=== PATIENT | female | born 1940 | race Caucasian/White ===

== ENCOUNTER 2017-07-25 12:03 | Inpatient (IN) | payer MEDICARE, OTHER, BC ==
[2017-07-25] MEDS: ASPIRIN 81 MG TAB PO (12:23)
[2017-07-25] MEDS: NA BICARBONATE 8.4% 50 ML SYG IV (12:23)
[2017-07-25] MEDS ORDERED: ATROPINE 0.4 MG INJ IV (12:30)
[2017-07-25 12:42] LABS: ADD MAN DIFF? NO
[2017-07-25] MEDS: ATROPINE 1 MG/10 ML SYRINGE IV (12:45)
[2017-07-25 12:50] LABS: BASOPHILS % 0.5 % (0.0-2.0); EOSINOPHILS # 0.1 10^3/ul (0.0-0.5); HEMATOCRIT 38.9 % (37.0-47.0); HEMOGLOBIN 12.6 g/dl (12.0-16.0); LYMPHOCYTES # 1.3 10^3/ul (0.8-2.9); LYMPHOCYTES % 21.2 % (15.0-51.0); MEAN CORPUSCULAR HEMOGLOBIN 29.2 pg (29.0-33.0); MEAN CORPUSCULAR HGB CONC 32.4 g/dl (32.0-37.0); MEAN CORPUSCULAR VOLUME 90.3 fl (82.0-101.0); MEAN PLATELET VOLUME 11.7 fl (7.4-10.4); MONOCYTE # 0.6 10^3/ul (0.3-0.9); MONOCYTES % 9.9 % (0.0-11.0); NEUTROPHILS % 67.1 % (39.0-77.0); PLATELET COUNT 172 10^3/UL (140-415); RED BLOOD COUNT 4.31 10^6/ul (4.20-5.40); RED CELL DISTRIBUTION WIDTH 14.6 % (11.5-14.5)
[2017-07-25 13:01] LABS: ANION GAP 18 (8-16); BLOOD UREA NITROGEN 47 mg/dl (7-20); CALCIUM 9.1 mg/dl (8.4-10.2); CARBON DIOXIDE 25 mmol/L (21-31); CHLORIDE 106 mmol/L (97-110); CREATININE 1.06 mg/dl (0.44-1.00); GLUCOSE 160 mg/dl (70-220); POTASSIUM 4.3 mmol/L (3.5-5.1); SODIUM 145 mmol/L (135-144)
[2017-07-25 13:08] LABS: INR 1.21; PROTIME 15.5 Sec (11.9-14.9); PT RATIO 1.2
[2017-07-25 13:09] LABS: PARTIAL THROMBOPLASTIN TIME 30.9 Sec (25.0-35.0)
[2017-07-25 13:12] LABS: TROPONIN-I 0.022 ng/ml (0.00-0.12)
[2017-07-25] MEDS ORDERED: ONDANSETRON 4 MG INJ IV (14:00)
[2017-07-25] MEDS ORDERED: ACETAMINOPHEN 325 MG TAB PO (14:00)
[2017-07-25] MEDS ORDERED: NACL 0.9% 3 ML SYG IV (14:30)
[2017-07-25] MEDS ORDERED: GLUCOSE GEL 15 GRAM TUBE BUCCAL (15:00)
[2017-07-25] MEDS ORDERED: GLUCOSE GEL 15 GRAM TUBE PO ×2 (15:00)
[2017-07-25] MEDS ORDERED: DEXTROSE 50% 50 ML SYRINGE IV ×2 (15:00)
[2017-07-25] MEDS ORDERED: GLUCAGON 1 MG INJ IM (15:00)
[2017-07-25] MEDS ORDERED: CEFAZOLIN 2 GM/50 ML (PMX) 50 ML IVPB (15:16)
[2017-07-25] MEDS ORDERED: LIDOCAINE 1%/EPI 30 ML INJ (15:16)
[2017-07-25] MEDS ORDERED: IODIXANOL LOCM 50 ML BTL ×2 (15:17→17:19)
[2017-07-25] MEDS ORDERED: FENTAnyl 50 MCG/ML VIAL (15:30)
[2017-07-25] MEDS ORDERED: MIDAZOLAM 1 MG/ML 2 ML INJ (15:30)
[2017-07-25] MEDS ORDERED: SOD CHLORIDE 0.9% 500 ML (18:34)
[2017-07-25 19:32] LABS: CREATINE KINASE 27 IU/L (23-200)
[2017-07-25 19:45] LABS: CK INDEX 4.5; CK-MB 1.21 ng/ml (0.0-2.4)
[2017-07-25 19:46] LABS: TROPONIN-I 0.179 ng/ml (0.00-0.12)
[2017-07-25] MEDS: INSULIN ASPART [NOVOLOG] 3 ML PEN SC ×2 (19:47→21:00)
[2017-07-25] MEDS: ATORVASTATIN 20 MG TAB PO (21:05)
[2017-07-25] MEDS: CEFAZOLIN 1 GM/50 ML (PMX) 50 ML IVPB (22:06)
[2017-07-26 01:16] LABS: CREATINE KINASE 31 IU/L (23-200)
[2017-07-26 01:28] LABS: CK INDEX 3.7; CK-MB 1.16 ng/ml (0.0-2.4)
[2017-07-26 01:38] LABS: TROPONIN-I 0.221 ng/ml (0.00-0.12)
[2017-07-26] MEDS: GUAIFENESIN/DM 5ML CUP PO (01:41)
[2017-07-26] MEDS: FUROSEMIDE 20 MG INJ IV (01:53)
[2017-07-26] MEDS: ACETAMINOPHEN 325 MG TAB PO (02:00)
[2017-07-26] MEDS: ACCU-CHEK XX (02:32)
[2017-07-26 06:21] LABS: MAGNESIUM 1.4 mg/dl (1.7-2.5)
[2017-07-26 06:25] LABS: ALANINE AMINOTRANSFERASE 25 IU/L (13-69); ALBUMIN 3.7 g/dl (3.3-4.9); ALBUMIN/GLOBULIN RATIO 1.27; ALKALINE PHOSPHATASE 62 IU/L (42-121); ANION GAP 17 (8-16); ASPARTATE AMINO TRANSFERASE 17 IU/L (15-46); BILIRUBIN,INDIRECT 0.9 mg/dl (0-1.1); BILIRUBIN,TOTAL 0.9 mg/dl (0.2-1.3); BLOOD UREA NITROGEN 39 mg/dl (7-20); CARBON DIOXIDE 28 mmol/L (21-31); CHLORIDE 103 mmol/L (97-110); CHOL/HDL RATIO 4.1 RATIO; CHOLESTEROL 172 mg/dl (100-200); CREATININE 0.92 mg/dl (0.44-1.00); GLUCOSE 114 mg/dl (70-220); HDL CHOLESTEROL 41 mg/dl (33-92); LDL CHOLESTEROL,CALCULATED 112 mg/dl; POTASSIUM 3.9 mmol/L (3.5-5.1); SODIUM 144 mmol/L (135-144); TOTAL PROTEIN 6.6 g/dl (6.1-8.1); TRIGLYCERIDES 97 mg/dl (0-149)
[2017-07-26 06:26] LABS: PT RATIO 1.2
[2017-07-26 06:29] LABS: B-TYPE NATRIURETIC PEPTIDE 7560 PG/ML (0-450)
[2017-07-26 06:30] LABS: ADD MAN DIFF? NO
[2017-07-26 06:40] LABS: FREE T4 (FREE THYROXINE) 1.63 ng/dl (0.78-2.44)
[2017-07-26 06:42] LABS: TROPONIN-I 0.152 ng/ml (0.00-0.12)
[2017-07-26] MEDS: PANTOPRAZOLE (EC) 40 MG TAB PO (06:44)
[2017-07-26] MEDS: CEFAZOLIN 1 GM/50 ML (PMX) 50 ML IVPB ×2 (06:45→16:25)
[2017-07-26 07:13] LABS: PROTIME 15.4 Sec (11.9-14.9)
[2017-07-26] MEDS: INSULIN ASPART [NOVOLOG] 3 ML PEN SC ×3 (07:35→17:35)
[2017-07-26] MEDS: FUROSEMIDE 20 MG TAB PO (08:18)
[2017-07-26] MEDS: ASPIRIN 81 MG TAB PO (08:18)
[2017-07-26] MEDS: LISINOPRIL 5 MG TAB GTB (08:19)
[2017-07-26 10:41] LABS: BASOPHILS % 0.2 % (0.0-2.0); EOSINOPHILS % 0.2 % (0.0-7.0); HEMATOCRIT 36.7 % (37.0-47.0); HEMOGLOBIN 11.7 g/dl (12.0-16.0); LYMPHOCYTES # 0.7 10^3/ul (0.8-2.9); LYMPHOCYTES % 7.5 % (15.0-51.0); MEAN CORPUSCULAR HGB CONC 31.9 g/dl (32.0-37.0); MEAN CORPUSCULAR VOLUME 90.8 fl (82.0-101.0); MEAN PLATELET VOLUME 11.3 fl (7.4-10.4); MONOCYTE # 0.6 10^3/ul (0.3-0.9); NEUTROPHILS % 85.7 % (39.0-77.0); PLATELET COUNT 172 10^3/UL (140-415); RED BLOOD COUNT 4.04 10^6/ul (4.20-5.40); RED CELL DISTRIBUTION WIDTH 14.7 % (11.5-14.5)
[2017-07-26 10:41] LABS: WHITE BLOOD COUNT 9.3 10^3/ul (4.8-10.8)
== END 2017-07-26 18:45 | disposition home or self-care (01) | DRG 226 ==
LOC: E/R 12:03 → REC 14:22 → ICU 18:39
PROC: 0JH609Z Insertion of Cardiac Resynchronization Defibrillator Pulse Generator into Chest Subcutaneous Tissue and Fascia, Open Approach (ICD-10-PCS; principal; 2017-07-25 15:38)
PROC: 02HK3KZ Insertion of Defibrillator Lead into Right Ventricle, Percutaneous Approach (ICD-10-PCS; 2017-07-25 15:38)
PROC: 02H63KZ Insertion of Defibrillator Lead into Right Atrium, Percutaneous Approach (ICD-10-PCS; 2017-07-25 15:38)
DX: I44.2 Atrioventricular block, complete (principal); I50.23 Acute on chronic systolic (congestive) heart failure; I25.10 Atherosclerotic heart disease of native coronary artery without angina pectoris; I25.5 Ischemic cardiomyopathy; I27.20 Pulmonary hypertension, unspecified; I11.0 Hypertensive heart disease with heart failure; E11.9 Type 2 diabetes mellitus without complications; E78.5 Hyperlipidemia, unspecified; Z95.1 Presence of aortocoronary bypass graft; Z95.5 Presence of coronary angioplasty implant and graft; Z79.82 Long term (current) use of aspirin; Z79.4 Long term (current) use of insulin
CPT/HCPCS: 33225; 33240; 33249; 36415; 71045; 80048; 80053; 80061; 82550; 82553; 82962; 83735; 83880; 84145; 84439; 84443; 84484; 85025; 85610; 85730; 87081; 93005; 93306; 96374; 96375; 99291-25